=== PATIENT | male | born 1995 ===

== ENCOUNTER 2017-02-18 12:59 | Emergency (ER) | payer OTHER ==
[2017-02-18 13:23] VITALS: BP 110/71; PULSE 79; RESP 20; TEMP 98.5; O2SAT 100
[2017-02-18 13:59] LABS: BASO % 0.4 % (0.0-2.0); EOS % 0.4 % (0.0-4.0); LYMPH # 1.4 K/uL (1.0-4.3); MEAN CELL VOLUME 84.7 fL (80.0-94.0); MEAN CORPUSCULAR HEMOGLOBIN 29.1 pg (27.0-31.0); MEAN CORPUSCULAR HGB CONC 34.4 g/dL (33.0-37.0); MEAN PLATELET VOLUME 8.6 fL (7.2-11.7); MONO # 0.7 K/uL (0.0-0.8); MONO % 6.6 % (0.0-10.0); NEUT # 7.8 K/uL (1.8-7.0); NEUT % 78.6 % (50.0-75.0); NRBC % 0.1 % (0.0-2.0); RBC 4.8 Mil/uL (4.40-5.90); RED CELL DISTRIBUTION WIDTH 12.8 % (11.5-14.5); WHITE BLOOD COUNT 9.9 K/uL (4.8-10.8)
[2017-02-18] MEDS ORDERED: Tmp-Smz 800 mg-160 mg DS Tab PO STA (14:04)
[2017-02-18 14:17] LABS: ALBUMIN 4.1 g/dL (3.5-5.0)
[2017-02-18 14:20] LABS: GFR AFRICAN-AMERICAN > 60; GFR NON-AFRICAN AMERICAN > 60
[2017-02-18 14:21] LABS: ALB/GLOB RATIO 1.2 (1.0-2.1); ALT/SGPT 19 U/L (21-72); AST/SGOT 37 U/L (17-59); BLOOD UREA NITROGEN 13 mg/dL (9-20); CALCIUM 8.8 mg/dl (8.6-10.4)
[2017-02-18] MEDS ORDERED: Tmp-Smz 800 mg-160 mg DS Tab ONE (14:25)
--- NOTE | 2017-02-18 14:55 | C.PDOC ---
History Of Present Illness 21 y/o male c/o burn to right lower leg, with some chemical used as cement additive, while at work 1 week ago. Patient reports he developed blisters in the area, which popped, and drained some discharge. Notes some redness in the area now. Not UTD with tetanus vaccination. Denies fever. Time Seen by Provider: 02/18/17 13:24 Chief Complaint (Nursing): Abnormal Skin Integrity History Per: Patient History/Exam Limitations: no limitations Onset/Duration Of Symptoms: Days Current Symptoms Are (Timing): Still Present Location Of Injury: Right: Leg Quality Of Symptoms: Draining Recent travel outside of the [place]: No Past Medical History Reviewed: Historical Data, Nursing Documentation, Vital Signs Vital Signs: Last Vital Signs Temp 98.5 F 02/18/17 13:19 Pulse 79 02/18/17 13:19 Resp 20 02/18/17 13:19 BP 110/71 02/18/17 13:19 Pulse Ox 100 02/18/17 19:13 - Medical History PMH: No Chronic Diseases Family History: States: Unknown Family Hx - Social History Hx Alcohol Use: Yes Hx Substance Use: No - Immunization History Hx Tetanus Toxoid Vaccination: Yes Hx Influenza Vaccination: Yes Hx Pneumococcal Vaccination: Yes Review Of Systems Except As Marked, All Systems Reviewed And Found Negative. Constitutional: Negative for: Fever, Chills Respiratory: Negative for: Cough Gastrointestinal: Negative for: Nausea, Vomiting Skin: Positive for: Lesions (right lower leg) Neurological: Negative for: Weakness, Numbness Physical Exam - Physical Exam Appears: Non-toxic, No Acute Distress Skin: Warm, Dry, Other (see extremity) Head: Atraumatic, Normacephalic Chest: Symmetrical Cardiovascular: Rhythm Regular, No Murmur Respiratory: Normal Breath Sounds, No Rales, No Rhonchi, No Wheezing Gastrointestinal/Abdominal: Soft, No Tenderness, No Guarding, No Rebound Back: Normal Inspection Extremity: Normal ROM, Capillary Refill (< 2 sec. ), Other (R lateral lower leg : round 3.5 cmarea of crust surrounding erythema - just superior to this area is a small 4mm opening with purulent discharge. No fluctuance. Knee joint spared. ) Pulses: Left Dorsalis Pedis: Normal, Right Dorsalis Pedis: Normal Neurological/Psych: Oriented x3, Normal Speech, Normal Cognition ED Course And Treatment - Laboratory Results Result Diagrams: 02/18/17 13:55 02/18/17 13:55 O2 Sat by Pulse Oximetry: 100 (RA) Pulse Ox Interpretation: Normal Progress Note: Culture swab obtained. Bloodwork ordered - white blood cell count WNL. Bactrim and Keflex given. Advised to continue taking medications as directed and to f/u with clinic/pmd for further evaluation. Disposition - Disposition Referrals: [employer] [facility] [Outside] [facility] [Outside] [facility] [Outside] Disposition: HOME/ ROUTINE Disposition Time: 14:52 Condition: STABLE Additional Instructions: Follow up in Clinic within 2-3 days. return to Ed if feel worse. 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 - Scribe Statement The provider has reviewed the documentation as recorded by the [employer] All medical record entries made by the Scribe were at my direction and personally dictated by me. I have reviewed the chart and agree that the record accurately reflects my personal performance of the history, physical exam, medical decision making, and the department course for this patient. I have also personally directed, reviewed, and agree with the discharge instructions and disposition.
[2017-02-18] MEDS ORDERED: Bacitracin 500 Units/gm Oint Foilpak UD ONE (15:04)
== END 2017-02-18 15:14 | disposition home or self-care (01) ==
LOC: C.ER 12:59
DX: T65.891A Toxic effect of other specified substances, accidental (unintentional), initial encounter (principal); T24.501A Corrosion of first degree of unspecified site of right lower limb, except ankle and foot, initial encounter; L08.89 Other specified local infections of the skin and subcutaneous tissue; Y92.89 Other specified places as the place of occurrence of the external cause; Y99.0 Civilian activity done for income or pay

== ENCOUNTER 2017-03-01 15:49 | Inpatient (IN) | payer OTHER ==
[2017-03-01] MEDS ORDERED: Sodium Chloride 0.9% 1,000 ML ONE (17:21)
--- NOTE | 2017-03-01 17:37 | C.PDOC ---
History Of Present Illness 21 yr old male presents to the ER for evaluation of area of tender mass, pain, swelling, redness to the right lower leg for the past 3 weeks, associated with an open wound that started to drain 2 days ago. Patient admits to being seen here on 02/22/17 due to same complaints, when was discharged with prescription of Bactrim and Keflex. Patient reports no improvements of symptoms, states the swelling, pain and redness has worsen and spread. Denies fever, chills, CP, SOB , abd. pain, N/V, denies weakness , sensory or vascular deficits to Right leg. Ambulate to ED for evaluation, in pain. Records from previous visit to ED review. Last visit was on 02/22/17 when wound cx obtained (+) MRSA with resistance to Bactrim and Keflex. Time Seen by Provider: 03/01/17 16:43 Chief Complaint (Nursing): Abnormal Skin Integrity History Per: Patient History/Exam Limitations: no limitations Onset/Duration Of Symptoms: Days (3 weeks ) Past Medical History Reviewed: Historical Data, Nursing Documentation, Vital Signs Vital Signs: Last Vital Signs Temp 98 F 03/01/17 22:19 Pulse 75 03/01/17 22:19 Resp 16 03/01/17 22:19 BP 101/62 03/01/17 22:19 Pulse Ox 75 L 03/01/17 22:19 Family History: States: No Known Family Hx - Social History Hx Alcohol Use: Yes Hx Substance Use: No - Immunization History Hx Tetanus Toxoid Vaccination: Yes Hx Influenza Vaccination: Yes Hx Pneumococcal Vaccination: Yes Review Of Systems Except As Marked, All Systems Reviewed And Found Negative. Constitutional: Negative for: Fever, Chills Gastrointestinal: Negative for: Nausea, Vomiting Musculoskeletal: Negative for: Leg Pain Skin: Positive for: Other (Right leg, area of pain, swelling and redness. ) Neurological: Negative for: Weakness, Numbness Physical Exam - Physical Exam Appears: Non-toxic, No Acute Distress Skin: Warm, Dry, Other (Right Leg; (+) tender induration with central open wound with copious purulent discharge over anterior haji. Diffuse erythema and edema to lower leg. ) Head: Normacephalic Oral Mucosa: Moist Throat: No Erythema, No Exudate, No Drooling Neck: Supple Chest: No Tenderness Cardiovascular: Rhythm Regular, No Murmur Respiratory: No Rales, No Rhonchi, No Stridor, No Wheezing Gastrointestinal/Abdominal: Soft, No Tenderness, No Distention, No Guarding Extremity: Normal ROM, No Calf Tenderness, Capillary Refill (<2), No Deformity, Swelling (Right lower leg) Pulses: Left Dorsalis Pedis: Normal, Right Dorsalis Pedis: Normal Neurological/Psych: Oriented x3, Normal Speech, Normal Motor, Normal Sensation, Normal Reflexes ED Course And Treatment - Laboratory Results Result Diagrams: 03/01/17 17:41 03/01/17 17:41 O2 Sat by Pulse Oximetry: 98 (RA ) Pulse Ox Interpretation: Normal Progress Note: On re-eavl, pt remained stable, non-septic. Blood work review, mild leukocytosis noted. WOund cx re-send to lab. Case discussed with Hospitalist and admission arranged w/Dx: Abscess of Right lower leg with cellulitis, failed outpt tx, MSRA infection. 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 - Scribe Statement The provider has reviewed the documentation as recorded by the Scribe Yara Thorpe All medical record entries made by the [employer] were at my direction and personally dictated by me. I have reviewed the chart and agree that the record accurately reflects my personal performance of the history, physical exam, medical decision making, and the department course for this patient. I have also personally directed, reviewed, and agree with the discharge instructions and disposition.
[2017-03-01] MEDS ORDERED: Vancomycin 1 GM 1 GM/250 ML BAG IVPB ONE (17:42)
[2017-03-01 17:46] LABS: BASO # 0.1 K/uL (0.0-0.2); BASO % 0.5 % (0.0-2.0); EOS # 0.1 K/uL (0.0-0.7); EOS % 0.6 % (0.0-4.0); LYMPH # 1.5 K/uL (1.0-4.3); LYMPH % 10.9 % (20.0-40.0); MEAN CELL VOLUME 84.2 fL (80.0-94.0); MEAN CORPUSCULAR HEMOGLOBIN 28.4 pg (27.0-31.0); MEAN CORPUSCULAR HGB CONC 33.7 g/dL (33.0-37.0); MEAN PLATELET VOLUME 8.4 fL (7.2-11.7); MONO # 0.8 K/uL (0.0-0.8); MONO % 5.7 % (0.0-10.0); RED CELL DISTRIBUTION WIDTH 12.6 % (11.5-14.5); WHITE BLOOD COUNT 13.7 K/uL (4.8-10.8)
[2017-03-01 17:56] LABS: CHLORIDE 100 mmol/L (98-107); POTASSIUM 3.8 mmol/L (3.6-5.2); SODIUM 137 mmol/L (132-148)
[2017-03-01 17:59] LABS: BLOOD UREA NITROGEN 11 mg/dL (9-20); CARBON DIOXIDE 24 mmol/L (22-30); GFR AFRICAN-AMERICAN > 60
[2017-03-01 18:00] LABS: GLUCOSE,RANDOM 95 mg/dL (75-110)
--- NOTE | 2017-03-01 23:14 | CP.PCM.HP ---
<Krissy MARREROJanny K - Last Filed: 03/01/17 23:22> History of Present Illness - History of Present Illness History of Present Illness: CC: "my leg is swollen" Patient is a 21 year old male without significant medical history who presents with complaint of leg swelling and pain. Patient was seen in the ER on 02/18/17 following a chemical burn at work. 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 Patient was given bactrim, keflex, and mupirocin ointment. Patient states he completed the antibiotics and used the ointment on the burn and saw some improvement. However, this past Wednesday patient states the leg became swollen again with more erythema around the initial wound site. Wound culture that was done on 02/18 resulted positive for MRSA that is resistant to bactrim. Patient reports occasional subjective fever, pruritis, and tenderness to the area but denies other complaints. PMD: none PMHx: denies PSHx: denies FamHx: denies Social Hx: admits to occasional tobacco and alcohol use, denies drug use, lives with friend, works construction Present on Admission - Present on Admission Any Indicators Present on Admission: No Review of Systems - Constitutional Constitutional: Fever. absent: Chills, Night Sweats - EENT Eyes: absent: Blurred Vision Nose/Mouth/Throat: absent: Nasal Congestion - Cardiovascular Cardiovascular: absent: Chest Pain, Dyspnea - Respiratory Respiratory: absent: Cough, Dyspnea - Gastrointestinal Gastrointestinal: absent: Nausea, Vomiting - Genitourinary Genitourinary: absent: Difficulty Urinating, Dysuria - Musculoskeletal Musculoskeletal: absent: Back Pain, Joint Swelling - Integumentary Integumentary: Skin Pain, Swelling, Wounds - Neurological Neurological: absent: Weakness Past Patient History - Past Social History Smoking Status: Never Smoked - PSYCHIATRIC Hx Substance Use: No - SURGICAL HISTORY Hx Surgeries: No Meds Allergies/Adverse Reactions: Allergies Allergy/AdvReac Type Severity Reaction Status Date / Time No Known Allergies Allergy Verified 03/01/17 15:55 Physical Exam - Constitutional Appears: Non-toxic, No Acute Distress - Head Exam Head Exam: ATRAUMATIC, NORMOCEPHALIC - Eye Exam Eye Exam: EOMI - ENT Exam ENT Exam: Mucous Membranes Moist - Respiratory Exam Respiratory Exam: Clear to Auscultation Bilateral, NORMAL BREATHING PATTERN - Cardiovascular Exam Cardiovascular Exam: +S1, +S2 - GI/Abdominal Exam GI & Abdominal Exam: Normal Bowel Sounds, Soft. absent: Tenderness - Extremities Exam Additional comments: right lower extremity with diffuse erythema from ankle to knee with wound inferior to knee wound draining serosanguinous fluid no fluctuance appreciated - Neurological Exam Neurological exam: Alert, Oriented x3 - Psychiatric Exam Psychiatric exam: Normal Affect - Skin Skin Exam: Warm Results - Vital Signs Recent Vital Signs: Last Vital Signs Temp 98 F 03/01/17 22:19 Pulse 75 03/01/17 22:19 Resp 16 03/01/17 22:19 BP 101/62 03/01/17 22:19 Pulse Ox 98 03/01/17 23:02 - Labs Result Diagrams: 03/01/17 17:41 03/01/17 17:41 Assessment & Plan - Assessment and Plan (Free Text) Assessment: 1. Burn Failed outpatient therapy patient was on bactrim, however wound culture taken 02/18 is MRSA resistant to bactrim will start vancomycin and zosyn and silvadene topically culture is sensitive to clindamycin, so may consider that as an option for outpatient treatment at time of discharge f/u repeat wound culture and blood culture General surgery consult for possible I&D, Dr. Crook, help appreciated 2. Prophylactic measure heparin sc pepcid Plan D/W Dr. Jones <Edwin Jones - Last Filed: 03/02/17 06:33> Results - Vital Signs Recent Vital Signs: Last Vital Signs Temp 98 F 03/01/17 23:18 Pulse 80 03/01/17 23:18 Resp 18 03/01/17 23:18 BP 102/64 03/01/17 23:18 Pulse Ox 98 03/02/17 01:24 - Labs Result Diagrams: 03/01/17 17:41 03/01/17 17:41 Assessment & Plan - Date & Time Date: 03/02/17 (I have seen and examined the patient. I agree with the findings and plan of care as documented by Dr. Luciano. Patient with recent burn on right lower extremity. Now with cellulitis and abscess. Abscess appears to be open and draining. Consult surgery in case further I&D necessary. Vanco and Zosyn for now due to MRSA on culture and risk of pseudomonas. Check blood cultures. Monitor for acute changes.) Time: 06:31 Attending/Attestation - Attestation I have personally seen and examined this patient.: Yes I have fully participated in the care of the patient.: Yes I have reviewed all pertinent clinical information: Yes
[2017-03-02] MEDS: Piperacill/Tazo 3.375gm in Dex 3.375 GM/50 ML BAG IVPB SCH ×3 (04:00→15:52)
[2017-03-02] MEDS: Silver Sulfadiazine 1% Cream (20 gm) TOP SCH ×5 (05:59→23:55)
[2017-03-02 07:11] LABS: BASO % 0.3 % (0.0-2.0); EOS # 0.1 K/uL (0.0-0.7); EOS % 1.6 % (0.0-4.0); HEMATOCRIT 35.6 % (35.0-51.0); LYMPH # 1.3 K/uL (1.0-4.3); LYMPH % 16.3 % (20.0-40.0); MEAN CELL VOLUME 84.2 fL (80.0-94.0); MEAN CORPUSCULAR HEMOGLOBIN 28.9 pg (27.0-31.0); MEAN CORPUSCULAR HGB CONC 34.3 g/dL (33.0-37.0); MEAN PLATELET VOLUME 8.5 fL (7.2-11.7); MONO # 0.5 K/uL (0.0-0.8); MONO % 6.2 % (0.0-10.0); NRBC % 0.2 % (0.0-2.0); WHITE BLOOD COUNT 8.3 K/uL (4.8-10.8)
[2017-03-02 07:30] LABS: CHLORIDE 104 mmol/L (98-107); SODIUM 139 mmol/L (132-148)
--- NOTE | 2017-03-02 07:30 | CP.PCM.CON ---
<CherryLudmila khan - Last Filed: 03/02/17 07:26> History of Present Illness - History of Present Illness History of Present Illness: General Surgery - Dr. Crook 21 yo M w/ no PMH who presents w/ worsening Right leg swelling and pain. Pt states that he suffered a chemical burn at work on 02/18. He initially went to the ED and was prescribed Bactrim, Keflex, and Mupirocin. He continued the antibiotics and ointment which initially showed improvement, but states that 4 days ago the leg became increasingly swollen and red. He also began to experience purulent drainage from the wound. Pt states he decided to return to ED today to have it checked out. He admits to subjective Fever, but denies any other symptoms. Reveiw of the chart shows that cultures done on 02/18 were positive for MRSA resistant to Bactrim. PMH/PSH: None Social ETOH NKDA Review of Systems - Review of Systems All systems: reviewed and no additional remarkable complaints except (as per HPI ) Past Patient History - Past Medical History & Family History Past Medical History?: Yes - Past Social History Smoking Status: Former Smoker - INTEGUMENTARY Other/Comment: right side of knee open wound red and swollen - MUSCULOSKELETAL/RHEUMATOLOGICAL Hx Falls: No - PSYCHIATRIC Hx Substance Use: No - SURGICAL HISTORY Hx Surgeries: No - ANESTHESIA Hx Anesthesia: Yes Hx Anesthesia Reactions: No Hx Malignant Hyperthermia: No Has any member of the family had a problem w/ anesthesia?: No Meds Allergies/Adverse Reactions: Allergies Allergy/AdvReac Type Severity Reaction Status Date / Time No Known Allergies Allergy Verified 03/01/17 15:55 - Medications Medications: Current Medications Acetaminophen (Tylenol 325mg Tab) 650 mg PO Q6 PRN PRN Reason: Pain, Mild (1-3) Famotidine (Pepcid) 20 mg PO DAILY [facility] Heparin Sodium (Porcine) (Heparin) 5,000 units SC Q8 [facility] Last Admin: 03/02/17 05:58 Dose: 5,000 units Vancomycin/Sodium Chloride (Vancocin) 1 gm in 200 mls @ 133 mls/hr IVPB Q12H [facility] Stop: 03/06/17 22:01 Piperacillin Sod/Tazobactam Sod (Zosyn 3.375 Gm Iv Premix) 3.375 gm in 50 mls @ 100 mls/hr IVPB Q6H [facility] Last Admin: 03/02/17 04:00 Dose: 100 mls/hr Ibuprofen (Motrin Tab) 400 mg PO Q6 PRN PRN Reason: Fever >100.4 F Silver Sulfadiazine (Silvadene 1% 20 Gm) 1 ea TOP Q6 [facility] Last Admin: 03/02/17 05:59 Dose: 20 gm Physical Exam - Constitutional Appears: No Acute Distress - Head Exam Head Exam: ATRAUMATIC, NORMAL INSPECTION, NORMOCEPHALIC - Eye Exam Eye Exam: EOMI, Normal appearance - Respiratory Exam Respiratory Exam: NORMAL BREATHING PATTERN. absent: Respiratory Distress - Extremities Exam Extremities exam: Positive for: full ROM, normal capillary refill, tenderness, pedal pulses present. Negative for: calf tenderness, pedal edema Additional comments: approx 6x6cm area of erythema and induration extending of the anterior R leg in the pretibial region, small opening expressing purulent material, no fluctuance - Neurological Exam Neurological exam: Alert, Oriented x3 - Psychiatric Exam Psychiatric exam: Normal Affect, Normal Mood - Skin Skin Exam: Dry, Intact Results - Vital Signs Recent Vital Signs: Last Vital Signs Temp 98 F 03/01/17 23:18 Pulse 80 03/01/17 23:18 Resp 18 03/01/17 23:18 BP 102/64 03/01/17 23:18 Pulse Ox 98 03/02/17 01:24 - Labs Result Diagrams: 03/02/17 07:00 03/01/17 17:41 Labs: Laboratory Results - last 24 hr 03/02/17 07:00 WBC 8.3 RBC 4.23 L Hgb 12.2 Hct 35.6 MCV 84.2 MCH 28.9 MCHC 34.3 RDW 13.0 Plt Count 219 MPV 8.5 Neut % (Auto) 75.6 H Lymph % (Auto) 16.3 L [place] % (Auto) 6.2 Eos % (Auto) 1.6 Baso % (Auto) 0.3 Neut # 6.2 Lymph # 1.3 [place] # 0.5 Eos # 0.1 Baso # 0.0 Assessment & Plan - Assessment and Plan (Free Text) Assessment: 21 yo M w/ RLE cellulitis 2/2 chemical burn, MRSA+ -Continue IV Abx as per c&s -Wound is open and draining, no fluctuant region to I&D -Continue Warm Compresses to the area and daily dressings with Silvadene -No surgical intervention at this time Dw Dr. Armaan Cherry PGY3 <Tate Crook - Last Filed: 03/06/17 16:58> Results - Vital Signs Recent Vital Signs: Last Vital Signs Temp 98 F 03/04/17 16:01 Pulse 69 03/04/17 16:01 Resp 20 03/04/17 16:01 BP 102/64 03/04/17 16:01 Pulse Ox 97 03/04/17 16:01 - Labs Result Diagrams: 03/04/17 08:11 03/04/17 08:11 Attending/Attestation - Attestation I have personally seen and examined this patient.: Yes I have fully participated in the care of the patient.: Yes I have reviewed all pertinent clinical information: Yes Notes (Text): 03/06/17 16:57 Pt was seen and examined at bedside on 03/02/17 Agree with above note and assessment Pt with Right Leg Chemical burn and cellulitis IV antibiotic Leg elevation. Plan d.w pt in detail Risk and benefit explained in detail.
[2017-03-02 07:31] LABS: POTASSIUM 3.6 mmol/L (3.6-5.2)
[2017-03-02 07:33] LABS: ALB/GLOB RATIO 1.1 (1.0-2.1); ALKALINE PHOSPHATASE 76 U/L (38-126); ALT/SGPT 24 U/L (21-72); AST/SGOT 14 U/L (17-59); BILIRUBIN,TOTAL 1.5 mg/dL (0.2-1.3); BLOOD UREA NITROGEN 14 mg/dL (9-20); CARBON DIOXIDE 25 mmol/L (22-30); GFR AFRICAN-AMERICAN > 60; GLUCOSE,RANDOM 111 mg/dL (75-110); TOTAL PROTEIN 6.5 g/dL (6.3-8.3)
[2017-03-02 07:34] LABS: CALCIUM 8.5 mg/dl (8.6-10.4)
[2017-03-02] MEDS: Vancomycin 1 gm/NS 200 ml 1 GM/200 ML BAG IVPB SCH ×2 (09:06→21:16)
--- NOTE | 2017-03-02 14:09 | CP.PCM.CON ---
History of Present Illness - History of Present Illness History of Present Illness: dictated Past Patient History - Past Medical History & Family History Past Medical History?: Yes - Past Social History Smoking Status: Former Smoker - INTEGUMENTARY Other/Comment: right side of knee open wound red and swollen - MUSCULOSKELETAL/RHEUMATOLOGICAL Hx Falls: No - PSYCHIATRIC Hx Substance Use: No - SURGICAL HISTORY Hx Surgeries: No - ANESTHESIA Hx Anesthesia: Yes Hx Anesthesia Reactions: No Hx Malignant Hyperthermia: No Has any member of the family had a problem w/ anesthesia?: No Meds Allergies/Adverse Reactions: Allergies Allergy/AdvReac Type Severity Reaction Status Date / Time No Known Allergies Allergy Verified 03/01/17 15:55 - Medications Medications: Current Medications Acetaminophen (Tylenol 325mg Tab) 650 mg PO Q6 PRN PRN Reason: Pain, Mild (1-3) Famotidine (Pepcid) 20 mg PO DAILY [facility] Last Admin: 03/02/17 09:06 Dose: 20 mg Heparin Sodium (Porcine) (Heparin) 5,000 units SC Q8 [facility] Last Admin: 03/02/17 13:26 Dose: 5,000 units Vancomycin/Sodium Chloride (Vancocin) 1 gm in 200 mls @ 133 mls/hr IVPB Q12H [facility] Stop: 03/06/17 22:01 Last Admin: 03/02/17 09:06 Dose: 133 mls/hr Piperacillin Sod/Tazobactam Sod (Zosyn 3.375 Gm Iv Premix) 3.375 gm in 50 mls @ 100 mls/hr IVPB Q6H [facility] Last Admin: 03/02/17 09:06 Dose: 100 mls/hr Ibuprofen (Motrin Tab) 400 mg PO Q6 PRN PRN Reason: Fever >100.4 F Silver Sulfadiazine (Silvadene 1% 20 Gm) 1 ea TOP Q6 [facility] Last Admin: 03/02/17 13:26 Dose: 1 applic Results - Vital Signs Recent Vital Signs: Last Vital Signs Temp 98.1 F 03/02/17 08:30 Pulse 75 03/02/17 08:30 Resp 19 03/02/17 08:30 BP 102/62 03/02/17 08:30 Pulse Ox 100 03/02/17 08:30 - Labs Result Diagrams: 03/02/17 07:00 03/02/17 07:00 Labs: Laboratory Results - last 24 hr 03/02/17 03/02/17 07:00 07:00 WBC 8.3 RBC 4.23 L Hgb 12.2 Hct 35.6 MCV 84.2 MCH 28.9 MCHC 34.3 RDW 13.0 Plt Count 219 MPV 8.5 Neut % (Auto) 75.6 H Lymph % (Auto) 16.3 L [place] % (Auto) 6.2 Eos % (Auto) 1.6 Baso % (Auto) 0.3 Neut # 6.2 Lymph # 1.3 [place] # 0.5 Eos # 0.1 Baso # 0.0 Sodium 139 Potassium 3.6 Chloride 104 Carbon Dioxide 25 Anion Gap 14 BUN 14 Creatinine 0.7 L Est GFR ( Amer) > 60 Est GFR (Non-Af Amer) > 60 Random Glucose 111 H Calcium 8.5 L Total Bilirubin 1.5 H AST 14 L D ALT 24 Alkaline Phosphatase 76 Total Protein 6.5 Albumin 3.4 L Globulin 3.2 Albumin/Globulin Ratio 1.1
[2017-03-02] MEDS ORDERED: Multiple Vitamins Tab PO SCH (14:45)
[2017-03-02] MEDS: Multiple Vitamins Tab PO SCH (15:51)
--- NOTE | 2017-03-02 17:55 | CP.PCM.PN ---
<Damian Roberson - Last Filed: 03/02/17 17:59> Subjective - Date & Time of Evaluation Date of Evaluation: 03/02/17 Time of Evaluation: 07:40 - Subjective Subjective: PGY-[address] Arias Patient seen and examined at bedside. Patient reports feeling tenderness along his entire right leg. Patient denies subjective fevers, chills, nausea, vomiting , headaches, dizziness, chest pain, SOB, abdominal pain, constipation, diarrhea , dysuria. Objective - Vital Signs/Intake and Output Vital Signs (last 24 hours): Temp Pulse Resp BP Pulse Ox 97.6 F 63 18 99/61 L 99 03/02/17 15:58 03/02/17 15:58 03/02/17 15:58 03/02/17 15:58 03/02/17 15:58 Intake and Output: 03/02/17 03/02/17 06:59 18:59 Intake Total 530 Balance 530 - Medications Medications: Current Medications Acetaminophen (Tylenol 325mg Tab) 650 mg PO Q6 PRN PRN Reason: Pain, Mild (1-3) Ascorbic Acid (Vitamin C 500 Mg Tab) 500 mg PO DAILY [facility] Last Admin: 03/02/17 15:51 Dose: 500 mg Famotidine (Pepcid) 20 mg PO DAILY [facility] Last Admin: 03/02/17 09:06 Dose: 20 mg Heparin Sodium (Porcine) (Heparin) 5,000 units SC Q8 [facility] Last Admin: 03/02/17 13:26 Dose: 5,000 units Vancomycin/Sodium Chloride (Vancocin) 1 gm in 200 mls @ 133 mls/hr IVPB Q12H [facility] Stop: 03/06/17 22:01 Last Admin: 03/02/17 09:06 Dose: 133 mls/hr Piperacillin Sod/Tazobactam Sod (Zosyn 3.375 Gm Iv Premix) 3.375 gm in 50 mls @ 100 mls/hr IVPB Q6H [facility] Last Admin: 03/02/17 15:52 Dose: 100 mls/hr Ibuprofen (Motrin Tab) 400 mg PO Q6 PRN PRN Reason: Fever >100.4 F Multivitamins (Hexavitamin) 1 tab PO DAILY [facility] Last Admin: 03/02/17 15:51 Dose: 1 tab Silver Sulfadiazine (Silvadene 1% 20 Gm) 1 ea TOP Q6 [facility] Last Admin: 03/02/17 13:26 Dose: 1 applic - Labs Labs: 03/02/17 07:00 03/02/17 07:00 - Head Exam Head Exam: ATRAUMATIC, NORMAL INSPECTION, NORMOCEPHALIC - Eye Exam Eye Exam: EOMI, PERRL - ENT Exam ENT Exam: Mucous Membranes Moist - Respiratory Exam Respiratory Exam: Clear to Ausculation Bilateral. absent: Rales, Rhonchi, Wheezes - Cardiovascular Exam Cardiovascular Exam: REGULAR RHYTHM, +S1, +S2 - GI/Abdominal Exam GI & Abdominal Exam: Soft, Normal Bowel Sounds. absent: Tenderness - Extremities Exam Additional comments: Diffuse erythema, swelling, and tenderness of the right leg compared to the left. Right leg wound currently draining purulent fluid. Dressing replaced by surgical team. - Neurological Exam Neurological Exam: Alert, Awake, Oriented x3 - Skin Skin Exam: Dry, Warm Assessment and Plan - Assessment and Plan (Free Text) Plan: Burn Wound Failed outpatient therapy with Bactrim. From prior ED visit, culture 02/18 grew MRSA resistant to Bactrim Vancomycin 1 gm IV Q12 Zosyn 3.375 gm IV Q6 Topical sulfadiazine Q6 Added vitamin C, multivitamins, and protein supplement Dr. Stinson (ID) consulted, help appreciated culture is sensitive to clindamycin, so may consider that as an option for outpatient treatment at time of discharge f/u repeat wound culture and blood culture General surgery consult for possible I&D, Dr. Crook, help appreciated 03/01: At this time, surgery does not recommend intervention. 2. Prophylactic measure heparin 5000 units SQ Q8 pepcid 20 mg PO daily Case DW Dr. Juana Roberson PGY-1 <Alberto Arias - Last Filed: 04/05/17 15:36> Objective - Vital Signs/Intake and Output Vital Signs (last 24 hours): Temp Pulse Resp BP Pulse Ox 98 F 69 20 102/64 97 03/04/17 16:01 03/04/17 16:01 03/04/17 16:01 03/04/17 16:01 03/04/17 16:01 - Labs Labs: 03/04/17 08:11 03/04/17 08:11 Attending/Attestation - Attestation I have personally seen and examined this patient.: Yes I have fully participated in the care of the patient.: Yes I have reviewed all pertinent clinical information, including history, physical exam and plan: Yes Notes (Text): Burn Wound
[2017-03-03] MEDS: Piperacill/Tazo 3.375gm in Dex 3.375 GM/50 ML BAG IVPB SCH ×2 (03:40→09:10)
[2017-03-03] MEDS: Silver Sulfadiazine 1% Cream (20 gm) TOP SCH ×3 (05:37→17:02)
[2017-03-03 07:15] LABS: CHLORIDE 103 mmol/L (98-107); POTASSIUM 3.8 mmol/L (3.6-5.2); SODIUM 140 mmol/L (132-148)
[2017-03-03 07:17] LABS: GFR AFRICAN-AMERICAN > 60
[2017-03-03 07:18] LABS: ALKALINE PHOSPHATASE 85 U/L (38-126); ALT/SGPT 27 U/L (21-72); AST/SGOT 23 U/L (17-59); BASO % 0.7 % (0.0-2.0); BILIRUBIN,TOTAL 0.9 mg/dL (0.2-1.3); BLOOD UREA NITROGEN 10 mg/dL (9-20); CARBON DIOXIDE 26 mmol/L (22-30); EOS # 0.2 K/uL (0.0-0.7); EOS % 2.7 % (0.0-4.0); GLUCOSE,RANDOM 99 mg/dL (75-110); HEMATOCRIT 37.1 % (35.0-51.0); LYMPH # 1.5 K/uL (1.0-4.3); LYMPH % 26.2 % (20.0-40.0); MEAN CELL VOLUME 84.5 fL (80.0-94.0); MEAN CORPUSCULAR HEMOGLOBIN 28.5 pg (27.0-31.0); MEAN CORPUSCULAR HGB CONC 33.8 g/dL (33.0-37.0); MEAN PLATELET VOLUME 8.9 fL (7.2-11.7); MONO # 0.4 K/uL (0.0-0.8); MONO % 6.9 % (0.0-10.0); NRBC % 0.1 % (0.0-2.0); RED CELL DISTRIBUTION WIDTH 13.1 % (11.5-14.5); TOTAL PROTEIN 6.7 g/dL (6.3-8.3); WHITE BLOOD COUNT 5.7 K/uL (4.8-10.8)
[2017-03-03 07:19] LABS: CALCIUM 8.9 mg/dl (8.6-10.4)
[2017-03-03] MEDS: Multiple Vitamins Tab PO SCH (09:10)
[2017-03-03] MEDS: Vancomycin 1 gm/NS 200 ml 1 GM/200 ML BAG IVPB SCH ×2 (09:11→21:03)
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
[2017-03-03 16:46] VITALS: RESP 20
[2017-03-03] MEDS: Ciprofloxacin 400mg/200ml D5W 400 MG/200 ML BAG IVPB SCH (17:02)
--- NOTE | 2017-03-03 17:20 | US ---
Extremity nonvascular ultrasound Indication: assess for fluid collection in RLE (knee) Findings: In the region of interest, inferior right lower extremity below the knee, there is a 0.8 x 0.6 x 0.7 cm hypoechoic region without evidence of vascularity, possibly complex fluid collection. This finding is reported at the level of an open wound. Soft tissue edema evident. Limited visualization appears otherwise grossly unremarkable. Impression: In the region of interest, inferior right lower extremity below the knee, there is a 0.8 x 0.6 x 0.7 cm hypoechoic region without evidence of vascularity, possibly complex fluid collection. This finding is reported at the level of an open wound. Soft tissue edema evident.
--- NOTE | 2017-03-03 20:20 | CP.PCM.PN ---
<Damian Roberson - Last Filed: 03/03/17 20:17> Subjective - Date & Time of Evaluation Date of Evaluation: 03/03/17 Time of Evaluation: 07:50 - Subjective Subjective: PGY-[address] Arias Patient seen and examined at bedside. Patient reports slight improvement in the swelling and pain. Patient denies fevers, chills, headaches, dizziness, chest pain, SOB, abdominal pain, n/v/c/d, dysuria. Objective - Vital Signs/Intake and Output Vital Signs (last 24 hours): Temp Pulse Resp BP Pulse Ox 97.7 F 66 20 106/71 99 03/03/17 15:00 03/03/17 15:00 03/03/17 15:00 03/03/17 15:00 03/03/17 15:00 - Medications Medications: Current Medications Acetaminophen (Tylenol 325mg Tab) 650 mg PO Q6 PRN PRN Reason: Pain, Mild (1-3) Ascorbic Acid (Vitamin C 500 Mg Tab) 500 mg PO DAILY [facility] Last Admin: 03/03/17 09:10 Dose: 500 mg Famotidine (Pepcid) 20 mg PO DAILY [facility] Last Admin: 03/03/17 09:10 Dose: 20 mg Heparin Sodium (Porcine) (Heparin) 5,000 units SC Q8 [facility] Last Admin: 03/03/17 13:44 Dose: 5,000 units Vancomycin/Sodium Chloride (Vancocin) 1 gm in 200 mls @ 133 mls/hr IVPB Q12H [facility] Stop: 03/06/17 22:01 Last Admin: 03/03/17 09:11 Dose: 133 mls/hr Ciprofloxacin (Cipro 400mg/200ml Dsw) 400 mg in 200 mls @ 133 mls/hr IVPB Q12H [facility] Last Admin: 03/03/17 17:02 Dose: 133 mls/hr Ibuprofen (Motrin Tab) 400 mg PO Q6 PRN PRN Reason: Fever >100.4 F Multivitamins (Hexavitamin) 1 tab PO DAILY [facility] Last Admin: 03/03/17 09:10 Dose: 1 tab Silver Sulfadiazine (Silvadene 1% 20 Gm) 1 ea TOP Q6 [facility] Last Admin: 03/03/17 17:02 Dose: 1 applic - Labs Labs: 03/03/17 06:46 03/03/17 06:46 - Constitutional Appears: No Acute Distress - Head Exam Head Exam: ATRAUMATIC, NORMAL INSPECTION, NORMOCEPHALIC - Eye Exam Eye Exam: EOMI, PERRL - ENT Exam ENT Exam: Mucous Membranes Moist - Respiratory Exam Respiratory Exam: Clear to Ausculation Bilateral. absent: Rales, Rhonchi, Wheezes - Cardiovascular Exam Cardiovascular Exam: REGULAR RHYTHM, +S1, +S2 - GI/Abdominal Exam GI & Abdominal Exam: Soft, Normal Bowel Sounds. absent: Tenderness - Extremities Exam Extremities Exam: Tenderness Additional comments: Reduced swelling compared to yesterday but the right leg is still more swollen than the left. Still erythematous but reduced compared to yesterday. Dressing c/d/i but wound still actively draining purulent fluid. - Neurological Exam Neurological Exam: Alert, Awake, Oriented x3 - Skin Skin Exam: Dry, Warm Assessment and Plan - Assessment and Plan (Free Text) Plan: Burn Wound Failed outpatient therapy with Bactrim. From prior ED visit, culture 02/18 grew MRSA resistant to Bactrim Vancomycin 1 gm IV Q12 Zosyn 3.375 gm IV Q6 Topical sulfadiazine Q6 Added vitamin C, multivitamins, and protein supplement Dr. Stinson (ID) consulted, help appreciated culture is sensitive to clindamycin, so may consider that as an option for outpatient treatment at time of discharge Repeat wound culture grew MRSA Blood culture negative so far General surgery consult for possible I&D, Dr. Crook, help appreciated At this time, surgery does not recommend intervention. 2. Prophylactic measure heparin 5000 units SQ Q8 pepcid 20 mg PO daily [facility] Dr. Juana Roberson PGY-1 <Alberto Arias - Last Filed: 04/05/17 15:38> Objective - Vital Signs/Intake and Output Vital Signs (last 24 hours): Temp Pulse Resp BP Pulse Ox 98 F 69 20 102/64 97 03/04/17 16:01 03/04/17 16:01 03/04/17 16:01 03/04/17 16:01 03/04/17 16:01 - Labs Labs: 03/04/17 08:11 03/04/17 08:11 Attending/Attestation - Attestation I have personally seen and examined this patient.: Yes I have fully participated in the care of the patient.: Yes I have reviewed all pertinent clinical information, including history, physical exam and plan: Yes Notes (Text): Burn Wound MRSA
[2017-03-04] MEDS: Ciprofloxacin 400mg/200ml D5W 400 MG/200 ML BAG IVPB SCH (04:06)
[2017-03-04] MEDS: Silver Sulfadiazine 1% Cream (20 gm) TOP SCH ×3 (05:35→11:31)
[2017-03-04 08:26] LABS: BASO % 0.6 % (0.0-2.0); EOS # 0.1 K/uL (0.0-0.7); EOS % 2.6 % (0.0-4.0); HEMATOCRIT 37.4 % (35.0-51.0); LYMPH # 1.4 K/uL (1.0-4.3); LYMPH % 28.7 % (20.0-40.0); MEAN CELL VOLUME 83.6 fL (80.0-94.0); MEAN CORPUSCULAR HEMOGLOBIN 28.2 pg (27.0-31.0); MEAN CORPUSCULAR HGB CONC 33.7 g/dL (33.0-37.0); MEAN PLATELET VOLUME 8.3 fL (7.2-11.7); MONO # 0.3 K/uL (0.0-0.8); MONO % 5.5 % (0.0-10.0); NRBC % 0.1 % (0.0-2.0); RED CELL DISTRIBUTION WIDTH 12.8 % (11.5-14.5)
[2017-03-04 08:36] LABS: CHLORIDE 103 mmol/L (98-107); POTASSIUM 4.1 mmol/L (3.6-5.2); SODIUM 138 mmol/L (132-148)
[2017-03-04 08:38] LABS: BILIRUBIN,TOTAL 0.9 mg/dL (0.2-1.3); GFR AFRICAN-AMERICAN > 60
[2017-03-04 08:39] LABS: ALB/GLOB RATIO 1.1 (1.0-2.1); ALKALINE PHOSPHATASE 77 U/L (38-126); ALT/SGPT 36 U/L (21-72); AST/SGOT 22 U/L (17-59); BLOOD UREA NITROGEN 10 mg/dL (9-20); CARBON DIOXIDE 26 mmol/L (22-30); GLUCOSE,RANDOM 106 mg/dL (75-110)
[2017-03-04 08:40] LABS: CALCIUM 9.1 mg/dl (8.6-10.4)
[2017-03-04] MEDS: Multiple Vitamins Tab PO SCH (09:16)
--- NOTE | 2017-03-04 10:58 | CP.PCM.PN ---
<Kunal Hernandez - Last Filed: 03/04/17 17:02> Subjective - Date & Time of Evaluation Date of Evaluation: 03/04/17 Time of Evaluation: 10:00 - Subjective Subjective: SURGERY NOTE FOR DR. CROOK 21M seen and examined at bedside. Patient states pain is controlled and wants to go home, denies fevers or chills. Objective - Vital Signs/Intake and Output Vital Signs (last 24 hours): Temp Pulse Resp BP Pulse Ox 98.2 F 59 L 20 99/62 L 98 03/04/17 08:00 03/04/17 08:00 03/04/17 08:00 03/04/17 08:00 03/04/17 08:00 - Medications Medications: Current Medications Acetaminophen (Tylenol 325mg Tab) 650 mg PO Q6 PRN PRN Reason: Pain, Mild (1-3) Ascorbic Acid (Vitamin C 500 Mg Tab) 500 mg PO DAILY [facility] Last Admin: 03/04/17 09:16 Dose: 500 mg Famotidine (Pepcid) 20 mg PO DAILY [facility] Last Admin: 03/04/17 09:16 Dose: 20 mg Heparin Sodium (Porcine) (Heparin) 5,000 units SC Q8 [facility] Last Admin: 03/04/17 05:32 Dose: 5,000 units Vancomycin/Sodium Chloride (Vancocin) 1 gm in 200 mls @ 133 mls/hr IVPB Q12H [facility] Stop: 03/06/17 22:01 Last Admin: 03/03/17 21:03 Dose: 133 mls/hr Ciprofloxacin (Cipro 400mg/200ml Dsw) 400 mg in 200 mls @ 133 mls/hr IVPB Q12H [facility] Last Admin: 03/04/17 04:06 Dose: 133 mls/hr Ibuprofen (Motrin Tab) 400 mg PO Q6 PRN PRN Reason: Fever >100.4 F Multivitamins (Hexavitamin) 1 tab PO DAILY [facility] Last Admin: 03/04/17 09:16 Dose: 1 tab Silver Sulfadiazine (Silvadene 1% 20 Gm) 1 ea TOP Q6 [facility] Last Admin: 03/04/17 05:35 Dose: 1 applic - Labs Labs: 03/04/17 08:11 03/04/17 08:11 - Constitutional Appears: Non-toxic, No Acute Distress - Head Exam Head Exam: ATRAUMATIC - Respiratory Exam Respiratory Exam: Clear to Ausculation Bilateral, NORMAL BREATHING PATTERN - Extremities Exam Additional comments: right lower leg cellulitis with small amount of fluid that was milked out - Neurological Exam Neurological Exam: Alert, Awake - Skin Skin Exam: Dry, Intact, Normal Color, Warm Assessment and Plan - Assessment and Plan (Free Text) Assessment: 21M with right lower leg cellulitis US: 0.8*0.6*0.7cm fluid collection at level of open wound Plan: - fluid draining from open wound - continue antibiotics as per ID Further recs discuss with Dr. Armaan Hernandez, PGY2 <Tate Crook - Last Filed: 03/06/17 17:11> Objective - Vital Signs/Intake and Output Vital Signs (last 24 hours): Temp Pulse Resp BP Pulse Ox 98 F 69 20 102/64 97 03/04/17 16:01 03/04/17 16:01 03/04/17 16:01 03/04/17 16:01 03/04/17 16:01 - Labs Labs: 03/04/17 08:11 03/04/17 08:11 Attending/Attestation - Attestation I have personally seen and examined this patient.: Yes I have fully participated in the care of the patient.: Yes I have reviewed all pertinent clinical information, including history, physical exam and plan: Yes Notes (Text): 03/06/17 17:09 Pt was seen and examined at bedside Agree with above note and assessment Pt with Resolving cellulitis of Right leg. Abscess is self draining Does not need any surgical intervention at present Pt can be DC home with PO antibiotics Plan d.w pt in detail Risk and benefit explained in detail.
[2017-03-04] MEDS: Vancomycin 1 gm/NS 200 ml 1 GM/200 ML BAG IVPB SCH (11:28)
[2017-03-04 13:02] VITALS: TEMP 98
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
--- NOTE | 2017-03-04 15:27 | CP.PCM.PN ---
Subjective - Date & Time of Evaluation Date of Evaluation: 03/04/17 Time of Evaluation: 03:00 - Subjective Subjective: dictated Objective - Vital Signs/Intake and Output Vital Signs (last 24 hours): Temp Pulse Resp BP Pulse Ox 98 F 70 20 106/71 98 03/04/17 13:02 03/04/17 13:02 03/04/17 13:02 03/04/17 13:02 03/04/17 13:02 - Medications Medications: Current Medications Acetaminophen (Tylenol 325mg Tab) 650 mg PO Q6 PRN PRN Reason: Pain, Mild (1-3) Ascorbic Acid (Vitamin C 500 Mg Tab) 500 mg PO DAILY [facility] Last Admin: 03/04/17 09:16 Dose: 500 mg Famotidine (Pepcid) 20 mg PO DAILY [facility] Last Admin: 03/04/17 09:16 Dose: 20 mg Heparin Sodium (Porcine) (Heparin) 5,000 units SC Q8 [facility] Last Admin: 03/04/17 13:39 Dose: 5,000 units Vancomycin/Sodium Chloride (Vancocin) 1 gm in 200 mls @ 133 mls/hr IVPB Q12H [facility] Stop: 03/06/17 22:01 Last Admin: 03/04/17 11:28 Dose: 133 mls/hr Ciprofloxacin (Cipro 400mg/200ml Dsw) 400 mg in 200 mls @ 133 mls/hr IVPB Q12H [facility] Last Admin: 03/04/17 04:06 Dose: 133 mls/hr Ibuprofen (Motrin Tab) 400 mg PO Q6 PRN PRN Reason: Fever >100.4 F Multivitamins (Hexavitamin) 1 tab PO DAILY [facility] Last Admin: 03/04/17 09:16 Dose: 1 tab Silver Sulfadiazine (Silvadene 1% 20 Gm) 1 ea TOP Q6 [facility] Last Admin: 03/04/17 11:31 Dose: 1 applic - Labs Labs: 03/04/17 08:11 03/04/17 08:11
[2017-03-04 16:02] VITALS: BP 102/64; PULSE 69; O2SAT 97
--- NOTE | 2017-03-04 20:28 | PN ---
DATE: 03/04/2017 SUBJECTIVE: The patient is feeling little better. His dressing is getting lesser. He has less pain. PHYSICAL EXAMINATION VITAL SIGNS: T-max is 98, pulse 70, blood pressure is 106/71, respirations are 20. HEENT: Head is atraumatic. NECK: Supple. LUNGS: Clear. HEART: S1 and S2 regular. ABDOMEN: Soft and nontender. EXTREMITIES: Right thigh has a dressing and left leg is unremarkable, swelling has decreased markedly, wound had MRSA, hence we will give him clindamycin as it is sensitive to that and he will be going home, I was told by the resident. White count is 5.0, BUN is 10, creatinine 0.7 and I also told the resident to give him mupirocin to apply in the nose and mupirocin to the wound until it heals. He will be going on clindamycin 300 mg p.o. t.i.d. and also acidophilus 1 capsule p.o. b.i.d and if he has any diarrhea, the patient is told to stop the antibiotic. He came in with MRSA infection and he was with cellulitis of the right leg. Morales Stinson MD
== END 2017-03-04 16:40 | disposition home or self-care (01) | DRG 278 ==
LOC: C.ER 15:49 → C.9E 18:56 → C.5T 21:44
PROVIDERS: ADMIT Internal Medicine; ATTEND Internal Medicine
DX: L03.115 Cellulitis of right lower limb (principal); B95.62 Methicillin resistant Staphylococcus aureus infection as the cause of diseases classified elsewhere; L29.9 Pruritus, unspecified; Z87.891 Personal history of nicotine dependence